=== PATIENT | female | born 1935 | race Caucasian/White ===

== ENCOUNTER 2022-08-22 18:10 | Inpatient (IN) | payer MEDICARE ==
[~2022-08-22] VITALS: Ht 162.6 cm; Wt 46.3 kg
--- NOTE | 2022-08-22 23:07 | EKG ---
[facility] [address] [facility] [place] [address] Signed Atrial fibrillation with premature ventricular or aberrantly conducted complexes Anteroseptal infarct , age undetermined ST \T\ T wave abnormality, consider inferolateral ischemia Abnormal ECG No previous ECGs available Confirmed by Sunny Limon MD () on 08/22/2022 11:06:57 PM Electronically Signed By: SUNNY LIMON MD 08/22/22 2307 PATIENT NAME: WALDEMAR HUDSON Electrocardiogram DATE OF : 37 PHYSICIAN: SUNNY LIMON MD REPORT #: [id number] REPORT IS CONFIDENTIAL AND NOT TO BE RELEASED WITHOUT AUTHORIZATION
[2022-08-23] MEDS ORDERED: LISINOPRIL20 MG PO (10:55)
[2022-08-23] MEDS ORDERED: LISINOPRIL-HCT1 EACH PO (10:56)
[2022-08-23] MEDS ORDERED: METOPROLOL TART50 MG PO (10:56)
[2022-08-28] MEDS ORDERED: LISINOPRIL20 MG PO (12:01)
[2022-08-28] MEDS ORDERED: METOPROLOL TART50 MG PO (12:01)
[2022-08-28] MEDS ORDERED: ASPIRIN81 MG PO (12:01)
== END 2022-09-04 14:20 | DRG 64 ==
LOC: ED 18:10 → MS 20:41 → CCU 08-30 11:25 → MS 09-02 11:00
PROVIDERS: ADMIT Family Medicine; ATTEND Family Medicine
PROC: 8E0ZXY6 Isolation (ICD-10-PCS; 2022-08-29)
PROC: 5A09457 Assistance with Respiratory Ventilation, 24-96 Consecutive Hours, Continuous Positive Airway Pressure (ICD-10-PCS; principal; 2022-08-30)
PROC: XW033E5 Introduction of Remdesivir Anti-infective into Peripheral Vein, Percutaneous Approach, New Technology Group 5 (ICD-10-PCS; 2022-08-31)
PROC: 3E0333Z Introduction of Anti-inflammatory into Peripheral Vein, Percutaneous Approach (ICD-10-PCS; 2022-08-31)
DX: I63.89 Other cerebral infarction (principal); J69.0 Pneumonitis due to inhalation of food and vomit; U07.1 COVID-19; J96.01 Acute respiratory failure with hypoxia; G81.91 Hemiplegia, unspecified affecting right dominant side; N17.9 Acute kidney failure, unspecified; E87.0 Hyperosmolality and hypernatremia; I48.91 Unspecified atrial fibrillation; Z66 Do not resuscitate; I10 Essential (primary) hypertension; Z51.5 Encounter for palliative care; E04.2 Nontoxic multinodular goiter; R47.01 Aphasia; E87.6 Hypokalemia; R13.12 Dysphagia, oropharyngeal phase
CPT/HCPCS: 36415; 51702; 70450; 70496; 70498; 70551; 71045; 74230; 80048; 80053; 80061; 82803; 83036; 83735; 84100; 85025; 85610; 85730; 87502; 92507; 92526; 92610; 92611; 93005; 93010; 94660; 97110; 97116; 97162; 97167; 97530; 97535; A9270; C9803; J0248; J1100; J1265; J2060; J2270; J2405; J2543; J3480; J7030; J7050; J7060; J7121; Q9967; U0003